=== PATIENT | male | born 1965 | race African-American/Black ===

== ENCOUNTER 2016-07-29 19:57 | Inpatient (IN) | payer OTHER ==
--- NOTE | ~2016-07-29 | DS ---
Unit #: [id number] #: [id number] Patient: RUCHI HENDRICKS [id number] [facility] [address] [place] [address] [id number] MR#: [id number] NAME: RUCHI HENDRICKS ROOM: [facility] Age: 51 Sex: M Admission Date: 07/29/2016 : 1965 Discharge Date: 08/03/2016 Attending Physician: Dago Martínez M.D. Primary Care Physician: Generic Doctor Not In System DISCHARGE SUMMARY REASON FOR ADMISSION The patient is a 51-year-old white male, admitted to the hospital after he had presented to this facility voicing positive suicidal ideation. HOSPITAL COURSE The patient was admitted to the [address] [place] [address] unit and placed on suicide precautions. He was continued on previously prescribed home medications. Zyprexa was eventually increased to a dose of 20 mg at h.s. given the patient's complaints that he was hearing voices. At the same time, the patient did not appear to be really responding to any internal stimuli and there was suspicion on the part of this physician that the patient may have been fabricating symptoms in order to extended stay in the hospital. He did engage in some mild self-mutilatory behavior on the evening of 08/01/2016 and room lockout was continued. By 08/03/2016, the patient requested discharge from the hospital. He denied suicidal or homicidal ideation and was tolerating medications without complaint. He reported significant reduction in auditory hallucinations and as per his request, discharge was ordered. FINAL DIAGNOSES Bipolar disorder, most recent episode depressed; personality disorder, unspecified; human immunodeficiency virus positive; benign prostatic hypertrophy; human immunodeficiency virus-2; hemorrhoids. DISPOSITION ON DISCHARGE The patient is discharged on the following medications; Desyrel 100 mg at h.s. p.r.n. insomnia, Zithromax 1200 mg q.7 days for HIV, Coreg 6.25 mg b.i.d. for hypertension, Diflucan 100 mg once daily for fungal infection, Flomax 0.4 mg b.i.d. for BPH, Valtrex 1000 mg b.i.d. for HSV-2, atovaquone 1 tablet daily for HIV, olanzapine 20 mg at bedtime for psychosis, Proctosol HC apply to hemorrhoids t.i.d. for hemorrhoid pain. DISCHARGE INSTRUCTIONS No dietary or physical restrictions were placed upon the patient at the time of discharge. FOLLOWUP Followup will take place through the auspices of community mental health resources. PROGNOSIS The patient's prognosis is considered fair. Unit #: [id number] #: [id number] Patient: RUCHI HENDRICKS Dictated by... Dago Martínez M.D. CB/candelario TD: 08/03/2016 21:32 JOB #: [id number] DISCHARGE SUMMARY X Dago Martínez MD X DISCHARGE SUMMARY
--- NOTE | ~2016-07-29 | PA ---
Unit #: [id number] #: [id number] Patient: RUCHI HENDRICKS [id number] [facility] [address] [place] [address] [id number] I MR#: [id number] NAME: RUCHI HENDRICKS ROOM: 30 Age: 51 Sex: M Admission Date: 07/29/2016 : 1965 Date of Assessment: 07/30/2016 Attending Physician: Dago Martínez M.D. Admitting Physician: Dago Martínez M.D. Primary Care Physician: Generic Doctor Not In System PSYCHIATRIC ASSESSMENT IDENTIFYING INFORMATION The patient is a 51-year-old single white male admitted to the [address] [place] [address] after presenting to this facility claiming to be suicidal. INFORMANT(S) Patient. RELIABILITY Poor. CHIEF COMPLAINT None given. HISTORY OF PRESENT ILLNESS The patient is a 52-year-old white male who is HIV positive. He states that he had presented to this facility yesterday directly after leaving [facility] where they "discharged me suicidal." The patient reports suicidal ideation with plan to jump in front of an automobile or cut his wrist. The patient states that he has had psychiatric hospitalizations "too numerous to count" and was last admitted at [facility]. He is currently homeless though he denies this, having not paid his rent at [employer]. The patient is on several psychotropic medications including trazodone and olanzapine. He also receives medication for his HIV status. When seen today, the patient threatens to suzy this physician if discharged and continues to endorse positive suicidal ideation. He also claims to be experiencing auditory hallucinations and complaints that he has not yet received his medications. PAST PSYCHIATRIC HISTORY As noted previously, the patient reports a history of psychiatric hospitalizations "too numerous to count." FAMILY HISTORY Noncontributory. SOCIAL HISTORY The patient is currently homeless. He denies abuse of psychoactive substances. He is not presently employed. MEDICAL HISTORY 1. Significant for a history of HIV positive status. 2. GERD. 3. Genital herpes. Unit #: [id number] #: [id number] Patient: RUCHI HENDRICKS MEDICATION HISTORY 1. Atovaquone. 2. Azithromycin. 3. Carvedilol. 4. Fluconazole. 5. Olanzapine. 6. Tamsulosin. 7. Trazodone. 8. Valacyclovir. ALLERGIES Sulfa, penicillin, Bactrim. MENTAL STATUS EXAM At this time reveals the patient to be a well-developed, well-nourished white male appearing somewhat older than his stated age. He is in no apparent physical distress at the time of the examination. He is awake, alert and oriented in all spheres. His mood is dysphoric and irritable. His affect congruent. Speech is generally relevant and coherent. There are no gross deficits in memory or cognition noted. Intelligence is judged to be in the low average range based on fund of knowledge. The patient is less than optimally cooperative during interview. He is currently endorsing positive suicidal ideation. He denies homicidal ideation. He reports positive auditory hallucinations. His judgement and insight appear to be reasonably intact. ASSETS AND LIABILITIES Patient's assets to be assessed. Liabilities, lack of resources. ADMITTING DIAGNOSES 1. Dysthymic disorder. 2. Psychotic disorder, unspecified. 3. 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 4. Rule out malingering. 5. HIV positive. 6. Benign prostatic hypertrophy. PSYCHIATRIC PLAN/TREATMENT GOALS The patient will remain hospitalized for safety and stabilization. Given concerns about the patient's safety, I will order room lockout precautions. We will seek old records from [facility] and will increase the patient's Zyprexa to 15 mg daily. ESTIMATED LENGTH OF STAY Five to seven days. Dictated by... Dago Martínez M.D. SINDY/manas TD: 07/30/2016 17:00 JOB #: [id number] Unit #: [id number] #: [id number] Patient: RUCHI HENDRICKS PSYCHIATRIC ASSESSMENT X Dago Martínez MD PSYCHIATRIC ASSESSMENT
--- NOTE | ~2016-07-29 | HP ---
Unit #: [id number] #: [id number] Patient: RUCHI HENDRICKS [id number] [facility] [address] [place] [address] [id number] I MR#: [id number] NAME: RUCHI HENDRICKS ROOM: P130 Age: 51 Sex: M Admission Date: 07/29/2016 : 1965 Attending Physician: Dago Martínez M.D. Admitting Physician: Dago Martínez M.D. Primary Care Physician: Generic Doctor Not In System HISTORY AND PHYSICAL HISTORY OF PRESENT ILLNESS The patient is a 51-year-old man who has been admitted to [facility] for feeling depressed and suicide attempt. PAST MEDICAL HISTORY 1. HIV aids 2. Hypertension 3. BPH PAST SURGICAL HISTORY None. ALLERGIES Bactrim, sulfa, penicillin G. HOME MEDICATIONS 1. Atovaquone 1500 mg 2. Azithromycin 1200 mg 3. Carvedilol 6.25 mg b.i.d. 4. Fluconazole 100 mg 5. Olanzapine 7.5 mg at night 6. Flomax 0.4 mg b.i.d. 7. Trazodone 100 mg at night 8. Valacyclovir 1000 mg b.i.d. 9. Vancomycin 1000 mg q.12 hours FAMILY HISTORY Medically noncontributory. SOCIAL HISTORY The patient is homeless. He endorses history of crack cocaine. Although he has not used "a very long time." REVIEW OF SYSTEMS CONSTITUTIONAL: The patient denies fever or chills. HEENT: The patient denies sore throat, ear pain, or runny nose. CARDIOVASCULAR: The patient denies chest pain, irregular heart rhythm or palpitations. RESPIRATORY: The patient denies shortness of breath or cough. No hemoptysis. GI: Denies nausea, vomiting, diarrhea or chronic constipation. ENDOCRINE: Denies history of increased thirst or urination. Denies any Unit #: [id number] #: [id number] Patient: RUCHI HENDRICKS recent weight loss or gain. : Denies any dysuria, frequency, or hematuria. SKIN: The patient denies rashes. HEMATOLOGIC: Denies any history of unusual bleeding or bruising. MUSCULOSKELETAL: Denies hot swollen joints. No generalized muscular pain. NEUROLOGIC: Denies problems with speech, vision, numbness, tingling, loss of bowel or bladder control. PHYSICAL EXAMINATION GENERAL: The patient is awake, alert, in no acute distress. VITAL SIGNS: Temperature 98.7, heart rate 91, respirations 18, and blood pressure 130/93. HEIGHT: 5 foot, 5 inches. WEIGHT: 160 pounds. HEENT: Head is atraumatic and normocephalic. Pupils are equal, round, and reactive. Extraocular movements are intact. No unusual discharge from nose or ears. NECK: Supple. Trachea is midline. HEART: Regular rate and rhythm. LUNGS: Clear. ABDOMEN: Soft and nontender, nondistended. : Not done. SKIN: Warm, dry. The patient does have blisters on his feet. EXTREMITIES: No evidence of clubbing, edema or cyanosis. NEUROLOGIC: Within normal limits. Cranial nerves II through XII appear to be intact. No focal deficit. Sensory and motor function grossly normal. Moves all extremities well. Coordination, gait normal. Deep tendon reflexes intact. IMPRESSION 1. Psychiatric admission. 2. HIV. RECOMMENDATIONS Psychiatric: Per psychiatrist. MEDICAL: I see no contraindication to participate in facility activities. MEDICAL PROGNOSIS Fair. MEDICAL CONDITION Stable. Dictated by... Vianca Mariano A.P.R.N. AM/pierce TD: 07/30/2016 05:29 JOB #: [id number] Unit #: [id number] #: [id number] Patient: RUCHI HENDRICKS HISTORY AND PHYSICAL X Vianca Mariano APRN X HISTORY AND PHYSICAL
--- NOTE | ~2016-07-29 | PN ---
Unit #: [id number] #: [id number] Patient: RUCHI HENDRICKS [id number] [facility] [address] [place] [address] [id number] I MR#: [id number] NAME: RUCHI HENDRICKS ROOM: [facility] Age: 51 Sex: M Admission Date: 07/29/2016 : 1965 Attending Physician: Dago Martínez M.D. Admitting Physician: Dago Martínez M.D. Primary Care Physician: Generic Doctor Not In System [facility] PROGRESS NOTES DATE 08/02/2016 DISCUSSION The patient's bizarre somewhat squirrely behavior continues. He made some superficial cuts on the dorsal aspect of his hand yesterday using his fingernails. He continues to waver as to whether or not he is actually homeless. Again, I suspect a strong degree of malingering and will look to probably discharge the patient tomorrow. I have him on room lockout at this point after secondary to his act of mild self-mutilation yesterday. Dictated by... Dago Martínez M.D. SINDY/nik TD: 08/02/2016 13:08 JOB #: [id number] [facility] PROGRESS NOTES X Dago Martínez MD PROGRESS NOTE
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
--- NOTE | ~2016-07-29 | PN ---
Unit #: [id number] #: [id number] Patient: RUCHI HENDRICKS [id number] [facility] [address] [place] [address] [id number] MR#: [id number] NAME: RUCHI HENDRICKS ROOM: [facility] Age: 51 Sex: M Admission Date: 07/29/2016 : 1965 Attending Physician: Dago Martínez M.D. Admitting Physician: Dago Martínez M.D. Primary Care Physician: Ronnie Doctor Not In System [facility] PROGRESS NOTES DATE 07/31/2016 DISCUSSION The patient continues to complain of auditory hallucinations but is much calmer and more cooperative today. I will discontinue his room lockout and increase his dose of Zyprexa to 20 mg at h.s. Additionally, we will order Anusol cream for the patient's complaints of hemorrhoid pain and room lockout will be discontinued. The patient's discharge notes from [facility] have been reviewed, and there is concern that the patient may have neurocognitive symptoms of his HIV status. Dictated by... Dago Martínez M.D. CB/mg TD: 07/31/2016 12:49 JOB #: [id number] [facility] PROGRESS NOTES X Dago Martínez MD PROGRESS NOTE
== END 2016-08-03 13:30 | disposition home or self-care (01) | DRG 881 ==
LOC: P2L 19:57 → P1S 22:19 → P2L 07-31 15:42
DX: F34.1 Dysthymic disorder (principal); R45.851 Suicidal ideations; F29 Unspecified psychosis not due to a substance or known physiological condition; F60.3 Borderline personality disorder; F60.2 Antisocial personality disorder; N40.0 Benign prostatic hyperplasia without lower urinary tract symptoms; Z21 Asymptomatic human immunodeficiency virus [HIV] infection status; Z88.0 Allergy status to penicillin; Z88.2 Allergy status to sulfonamides; Z88.6 Allergy status to analgesic agent